=== PATIENT | male | born 1935 | race Caucasian/White ===

== ENCOUNTER 2019-04-19 00:03 | Emergency (ER) | payer OTHER ==
[~2019-04-19] VITALS: Ht 182.9 cm; Wt 72.6 kg
--- NOTE | 2019-04-19 00:23 | NUR ---
SPOKE WITH RN FROM [facility]. STATES PT WAS AGITATED EARLIER TODAY AND PULLED OUT PENN CATHETER, UNKNOWN OF SIZE. PT WAS SENT HERE TO REPLACE PENN CATH AND CAN RETURN BACK TO FACILITY.
--- NOTE | 2019-04-19 00:30 | NUR ---
PT DAVID FROM [facility] S/P PULLED OUT PENN CATH EARLIER TODAY. PT AAOX2. RESPRIATIONS EVEN AND UNLABORED. SKIN INTACT. NO ACUTE DISTRESS NOTED AT THIS TIME. WILL CONTINUE TO MONITOR
[2019-04-19] MEDS ORDERED: LIDOCAINE 2% JEL UROJET 10 ML MM ONE (01:32)
--- NOTE | 2019-04-19 01:47 | NUR ---
PENN CATH REPLACED.
--- NOTE | 2019-04-19 01:47 | NUR ---
NOTED BLOOD CLOTS.
--- NOTE | 2019-04-19 02:25 | NUR ---
PHLEB AT BEDSIDE FOR BLOOD DRAW
[2019-04-19 02:35] LABS: BASOPHILS # (AUTO) 0.1 /CMM (0.0-0.2); BASOPHILS % (AUTO) 0.7 % (0.0-2.0); EOSINOPHILS % (AUTO) 4.2 % (0.0-6.0); HEMATOCRIT 38 % (39-51); HEMOGLOBIN 12.6 g/dL (13.5-17.5); LYMPHOCYTES # (AUTO) 1.2 /CMM (0.8-4.8); LYMPHOCYTES % (AUTO) 14.3 % (20.0-44.0); MEAN CORPUSCULAR HGB CONC 34 g/dl (31.0-36.0); MEAN CORPUSCULAR VOLUME 99 fL (80-96); MONOCYTES # (AUTO) 0.6 /CMM (0.1-1.30); MONOCYTES % (AUTO) 7.5 % (2.0-12.0); NEUTROPHILS # (AUTO) 6.3 /CMM (1.8-8.9); NEUTROPHILS % (AUTO) 73.3 % (43.0-81.0); PLATELET COUNT (AUTO) 184 /CMM (150-450); WHITE BLOOD COUNT (AUTO) 8.6 K/uL (4.3-11.0)
[2019-04-19 02:47] LABS: APPEARANCE,URINE CLOUDY (CLEAR); BILIRUBIN,URINE NEGATIVE (NEGATIVE); BLOOD, URINE LARGE Ery/uL (NEGATIVE); COLOR,URINE RED (YELLOW); KETONES,URINE NEGATIVE (NEGATIVE); LEUKOCYTE ESTERASE ,URINE TRACE (NEGATIVE); NITRITE, URINE NEGATIVE (NEGATIVE); PH,URINE 6.5 (5.0-8.0); PROTEIN,URINE 30 mg/dl (NEGATIVE); UGLUCOSE NEGATIVE (NEGATIVE)
[2019-04-19 02:49] LABS: CALCIUM, SERUM 10.2 mg/dL (8.5-10.1); CARBON DIOXIDE 26 mmol/L (21-32); CHLORIDE 101 mmol/L (98-107); CREATININE 0.9 mg/dL (0.6-1.3); GLUCOSE 79 mg/dL (74-106); POTASSIUM 4.4 mmol/L (3.5-5.1); SODIUM SERUM 135 mmol/L (136-145); UREA NITROGEN, BLOOD 26 mg/dL (7-18)
[2019-04-19 02:56] LABS: BACTERIA,URINE Few /HPF (None Seen); RBC,URINE TOO NUMEROUS TO COUN /HPF (0-2); SQUAMOUS EPITHELIAL CELL,UR Rare /HPF (None Seen)
[2019-04-19] MEDS ORDERED: CEFTRIAXONE 1GM BAG (ER ONLY) 0 ML IV ONE (03:48)
[2019-04-19] MEDS ORDERED: CEFTRIAXONE 1 G in IV D5W 50 ML IV ONE (04:00)
--- NOTE | 2019-04-19 04:37 | NUR ---
SPOKED TO [facility] ETA [id number].
--- NOTE | 2019-04-19 05:36 | NUR ---
GAVE REPORT TO [facility] 115 FOR TRANSPORTATION [place]
[2019-04-19 05:38] VITALS: BP 157/79
== END 2019-04-19 05:38 | disposition home or self-care (01) ==
LOC: ER 00:04
DX: T83.028A Displacement of other urinary catheter, initial encounter (principal); R31.9 Hematuria, unspecified; F03.90 Unspecified dementia, unspecified severity, without behavioral disturbance, psychotic disturbance, mood disturbance, and anxiety; I10 Essential (primary) hypertension; E03.9 Hypothyroidism, unspecified
CPT/HCPCS: 36415; 51702; 80048; 81001; 85025; 85610; 85730; 87086; 99284; J0696; J3490; J7060; 81000-TC

== ENCOUNTER 2019-05-08 07:40 | Emergency (ER) | payer OTHER ==
[~2019-05-08] VITALS: Ht 182.9 cm; Wt 73.9 kg
--- NOTE | 2019-05-08 08:00 | NUR ---
PATIENT ABLE TO URINATE WITH CLEAR RED YELLOW URINE PRIOR TO INSERTION OF PENN CATH. AWARE, AND STATED TO GO AHEAD TO INSERT A NEW PENN CATHETER DUE TO TRAUMA. FR 16 PENN CATHETER INSERTED VIA STERILE TECHNIQUE. URINE RED-YELLOW DRAINING. NO CLOTS NOTED.
--- NOTE | 2019-05-08 10:10 | NUR ---
REPORT GIVEN TO ABDIAS FROM [facility]. [facility]N TRANSPORTATION UNIT 143 TO [facility] ROOM 210.
[2019-05-08 10:26] VITALS: BP 135/81
--- NOTE | 2019-05-08 10:27 | NUR ---
patient picked up by PA going back to [facility] in stable condition, in no distress.
== END 2019-05-08 10:27 ==
LOC: ER 07:44
DX: Z46.6 Encounter for fitting and adjustment of urinary device (principal); F03.90 Unspecified dementia, unspecified severity, without behavioral disturbance, psychotic disturbance, mood disturbance, and anxiety; R31.0 Gross hematuria; I10 Essential (primary) hypertension; E03.9 Hypothyroidism, unspecified

== ENCOUNTER 2019-05-09 20:03 | Emergency (ER) | payer OTHER ==
[~2019-05-09] VITALS: Ht 175.3 cm; Wt 73.0 kg
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
[2019-05-09] MEDS ORDERED: IPRATROPIUM NEB FS 0.5 MG/2.5 ML AMPUL.NEB ONE (20:57)
[2019-05-09] MEDS ORDERED: ALBUTEROL FS 2.5 MG/3 ML VIAL.NEB ONE (20:57)
[2019-05-09] MEDS ORDERED: ALBUTEROL FS 2.5 MG/3 ML VIAL.NEB CONTNEB ONE (21:00)
[2019-05-09] MEDS ORDERED: IPRATROPIUM NEB FS 0.5 MG/2.5 ML AMPUL.NEB NEB ONE (21:00)
[2019-05-09] MEDS ORDERED: methylPREDNISolone SOD SUCC 1,000 MG in IV NS 0.9% 250 ML IV ONE (21:00)
[2019-05-09] MEDS ORDERED: methylPREDNISolone SOD SUCC 125 MG/2ML VIAL IV ONE (21:00)
[2019-05-09] MEDS ORDERED: methylPREDNISolone SOD SUCC 40 MG/ML VIAL IV ONE (21:00)
[2019-05-09 21:01] LABS: BASOPHILS # (AUTO) 0.1 /CMM (0.0-0.2); BASOPHILS % (AUTO) 0.9 % (0.0-2.0); EOSINOPHILS % (AUTO) 14.4 % (0.0-6.0); HEMATOCRIT 31 % (39-51); HEMOGLOBIN 10.5 g/dL (13.5-17.5); MEAN CORPUSCULAR HGB CONC 35 g/dl (31.0-36.0); MEAN CORPUSCULAR VOLUME 98 fL (80-96); MONOCYTES # (AUTO) 0.8 /CMM (0.1-1.30); MONOCYTES % (AUTO) 9.1 % (2.0-12.0); NEUTROPHILS # (AUTO) 5.6 /CMM (1.8-8.9); NEUTROPHILS % (AUTO) 64.6 % (43.0-81.0); PLATELET COUNT (AUTO) 201 /CMM (150-450); RED BLOOD CELL COUNT(AUTO) 3.11 MIL/uL (4.5-6.0); WHITE BLOOD COUNT (AUTO) 8.7 K/uL (4.3-11.0)
--- NOTE | 2019-05-09 21:06 | NUR ---
PT HAD BREATHING TX. MEDICATED ORDERED PER ERMD ORDER, PT DENIS WELL.
[2019-05-09] MEDS ORDERED: methylPREDNISolone SOD SUCC 125 MG/2ML VIAL ONE (21:34)
[2019-05-09 21:38] LABS: CALCIUM, SERUM 9.9 mg/dL (8.5-10.1); CARBON DIOXIDE 26 mmol/L (21-32); CHLORIDE 97 mmol/L (98-107); CREATININE 0.8 mg/dL (0.6-1.3); GLUCOSE 100 mg/dL (74-106); POTASSIUM 3.8 mmol/L (3.5-5.1); SODIUM SERUM 125 mmol/L (136-145); UREA NITROGEN, BLOOD 14 mg/dL (7-18)
[2019-05-09 21:44] LABS: ALANINE AMINOTRANSFERASE 24 U/L (12-78); ALBUMIN 2.9 g/dL (3.4-5.0); ALCOHOL, BLOOD < 3 mg/dL (0-0); ALKALINE PHOSPHATASE 115 U/L (46-116); ASPARTATE AMINOTRANSFERASE 17 U/L (15-37); BILIRUBIN,DIRECT 0.1 mg/dL (0.0-0.2); BILIRUBIN,TOTAL 0.3 mg/dL (0.2-1.0)
[2019-05-09 21:45] LABS: ACETAMINOPHEN < 2 ug/ml (10-30)
[2019-05-09] MEDS ORDERED: IV NS 0.9% 1,000 ML IV ONE (22:00)
--- NOTE | 2019-05-09 22:14 | NUR ---
called [facility] naya Aviles, waiting for call back.
--- NOTE | 2019-05-09 22:39 | NUR ---
per [place] from [facility], accepting MD is RICKEY Andrea transport ETA is 23:30. # for report [phone]
[2019-05-09 23:25] VITALS: BP 156/94
--- NOTE | 2019-05-09 23:47 | NUR ---
REPORT GIVEN TO SHERITA SWANSON AT [facility]. PT EN ROUT VIA BLS.
== END 2019-05-09 23:49 | disposition short-term general hospital (02) ==
LOC: ER 20:04
DX: J44.1 Chronic obstructive pulmonary disease with (acute) exacerbation (principal); E87.1 Hypo-osmolality and hyponatremia; I10 Essential (primary) hypertension; R45.1 Restlessness and agitation; F03.90 Unspecified dementia, unspecified severity, without behavioral disturbance, psychotic disturbance, mood disturbance, and anxiety; E03.9 Hypothyroidism, unspecified; Z87.891 Personal history of nicotine dependence
CPT/HCPCS: 36415; 71045; 80048; 80076; 80307; 80329; 85025; 94640; 96374; 99285; G0480; J2930 ×2; J7030; J7050